=== PATIENT | male | born 1960 | race Caucasian/White ===

== ENCOUNTER 2016-12-20 17:34 | Emergency (ER) | payer OTHER ==
[2016-12-20] MEDS ORDERED: IOPAMIDOL 370 (76%) 100 ML VIAL IV ONE (17:35)
[2016-12-20] MEDS ORDERED: SODIUM CHLORIDE 0.9% 1,000 ML ONE (18:05)
[2016-12-20 18:21] LABS: ABSOLUTE NEUTROPHIL COUNT 4.7 K/mm3 (1.8-7.7); BASO # 0.1 K/mm3 (0.0-0.2); BASO % 1.5 % (0.2-1.0); EOS # 0.3 (0.0-0.5); EOS % 3.6 % (0.9-2.9); HEMATOCRIT 44.8 % (32.0-52.0); HEMOGLOBIN 15.4 gm/l (14.0-18.0); IMM NEUT% 0.5 % (0-1); LYMPH # 1.8 (1.0-4.8); LYMPH % 24.2 % (15-45); MEAN CELL VOLUME 87.3 fl (80.0-94.0); MEAN CORPUSCULAR HGB CONC 34.4 g/dl (33.0-37.0); MEAN PLATELET VOLUME 10.8 fl (7.4-10.4); MONO # 0.6 (0.0-0.8); MONO % 8.2 % (4-12); PLATELET COUNT 189 K/mm3 (130-400); RED CELL DISTRIBUTION WIDTH 11.9 % (11.5-14.5)
[2016-12-20 19:03] LABS: ALBUMIN 3.8 gm/dL (3.5-5.7); CALCIUM 9.5 mg/dL (8.6-10.3)
--- NOTE | 2016-12-20 19:03 | CT ---
EXAMINATION: Contrast enhanced CT scan of the abdomen and pelvis. CLINICAL INDICATION: Abdominal/pelvic pain. COMPARISON: None TECHNIQUE: Oral contrast: None Following uneventful administration of 100 mL of Isovue 370, intravenously axial images were acquired from just above the domes of the diaphragm to the iliac crest. A CT scan of the pelvis was also obtained from the iliac crest to the initial tuberosities. Stacked axial, sagittal, and coronal images were reviewed. Findings: Abdomen CT: (Contrast-enhanced): Lung bases exhibit mild basilar atelectasis. No mass or consolidation is identified. The liver is unremarkable. The gallbladder is within normal limits. There is no evidence of biliary obstruction. The spleen size and attenuation are within normal limits. The pancreas is normal in size and contours. No inflammatory stranding is identified. The pancreatic duct is unremarkable. The adrenals are unremarkable. The kidneys are without mass or hydronephrosis. No nephrolithiasis is identified. Atherosclerotic plaquing of the abdominal aorta is noted. There is no aneurysmal dilatation. The stomach is unremarkable. The visualized segments of small and large bowel are within normal limits. The osseous structures exhibit no displaced fracture. No lytic or blastic lesions are identified. Pelvic CT: (Contrast -enhanced): There is sigmoid diverticulitis. Mucosal thickening and adjacent mesenteric stranding is noted. Currently there is no evidence of discrete abscess formation or free intraperitoneal air. There is no evidence of bowel obstruction. The visualized segments of small bowel are unremarkable. The prostate is normal in size. No adenopathy is identified. Bilateral chronic plaquing of the iliac vessels are noted. There is no aneurysmal dilatation. There is no dependent free fluid. The appendix is unremarkable. No displaced fractures are identified. There are no gross osteolytic or blastic lesions. The overlying soft tissues are unremarkable. IMPRESSION: 1. Currently uncomplicated sigmoid diverticulitis. No free air or abscess is identified. 2. Atherosclerosis. 3. Normal appendix. The findings were uploaded to the electronic medical record for review at approximately 7:05 PM 12/20/2016
[2016-12-20] MEDS ORDERED: AMOX 875 MG/CLAV 125 MG 1 EACH TABLET ONE (19:20)
[2016-12-20 19:24] LABS: SPECIFIC GRAVITY 1.025 (1.001-1.030); URINE APPEARANCE HAZY; URINE BILIRUBIN NEGATIVE (NEGATIVE); URINE BLOOD NEGATIVE (NEGATIVE); URINE COLOR ORANGE; URINE GLUCOSE (UA) NEGATIVE (NEGATIVE); URINE LEUKOCYTE ESTERASE NEGATIVE (NEGATIVE); URINE NITRITE NEGATIVE (NEGATIVE); URINE PROTEIN NEGATIVE (NEGATIVE); URINE UROBILINOGEN 1 mg/dL (0-1 mg/dl)
== END 2016-12-20 19:37 | disposition home or self-care (01) ==
LOC: ED 17:34
DX: K57.92 Diverticulitis of intestine, part unspecified, without perforation or abscess without bleeding (principal); I10 Essential (primary) hypertension

== ENCOUNTER 2016-12-23 11:23 | Emergency (ER) | payer OTHER ==
[2016-12-23] MEDS ORDERED: IOPAMIDOL 300 (61%) 100 ML VIAL IV ONE (11:24)
[2016-12-23 12:31] LABS: ABSOLUTE NEUTROPHIL COUNT 4.2 K/mm3 (1.8-7.7); BASO # 0.1 K/mm3 (0.0-0.2); BASO % 1.2 % (0.2-1.0); EOS # 0.4 (0.0-0.5); EOS % 5.2 % (0.9-2.9); HEMATOCRIT 43.2 % (32.0-52.0); HEMOGLOBIN 14.9 gm/l (14.0-18.0); IMM NEUT # 0.1 K/mm3 (0-0.2); IMM NEUT% 0.8 % (0-1); LYMPH # 1.9 (1.0-4.8); LYMPH % 26.1 % (15-45); MEAN CELL VOLUME 88.7 fl (80.0-94.0); MEAN CORPUSCULAR HEMOGLOBIN 30.6 pg (27.0-31.0); MEAN CORPUSCULAR HGB CONC 34.5 g/dl (33.0-37.0); MEAN PLATELET VOLUME 11.1 fl (7.4-10.4); MONO # 0.7 (0.0-0.8); MONO % 9.1 % (4-12); NEUT % 57.6 % (43-75); PLATELET COUNT 202 K/mm3 (130-400)
[2016-12-23] MEDS ORDERED: MORPHINE SULFATE 4 MG/ML SYRINGE ONE (12:34)
[2016-12-23 12:55] LABS: ALBUMIN 3.7 gm/dL (3.5-5.7); CALCIUM 9.1 mg/dL (8.6-10.3)
--- NOTE | 2016-12-23 13:17 | CT ---
Exam: CT abdomen and pelvis with contrast COMPARISON: 12/20/2016 INDICATION: Worsening abdominal pain, history of diverticulitis. TECHNIQUE: CT examination of the abdomen and pelvis was obtained following the administration 100 mL Isovue-300 intravenous contrast. FINDINGS: Findings compatible with diverticulitis are again appreciated within the sigmoid colon. The inflamed diverticulum is annotated on coronal reformations 41 of 79 and now contains some gas. There are tiny foci of gas adjacent to this segment of sigmoid colon, the vast majority of which are within diverticula although a few tiny locules of extraluminal gas cannot be excluded. Inflammatory stranding in this region has progressed. There is no bowel obstruction, free fluid or evidence of abscess formation. The liver, spleen, pancreas, kidneys, adrenal glands and gallbladder are unremarkable. There is minor dependent atelectasis within the lung bases. No worrisome lytic or blastic osseous lesion is identified. IMPRESSION: There is been a slight interval progression in the inflammatory changes within the sigmoid colon, and the setting of recently diagnosed diverticulitis. There are several tiny locules of gas about the sigmoid colon; the vast majority of these are within diverticulum although small locules of extraluminal gas reflecting perforation of the bowel cannot be excluded. There is no large volume pneumoperitoneum, abscess or free fluid. Findings were discussed with Dr. Lorenzo 1313 hours 12/23/2016.
[2016-12-23] MEDS ORDERED: LACTATED RINGERS 1,000 ML ONE (13:22)
[2016-12-23] MEDS ORDERED: CEFTRIAXONE 1 GRAM DUPLEX 50 ML IV ONE (13:22)
[2016-12-23] MEDS ORDERED: METRONIDAZOLE 500 MG/NS 100 ML 100 ML IV ONE (13:48)
== END 2016-12-23 14:49 | disposition home or self-care (01) ==
LOC: ED 11:23
DX: K57.92 Diverticulitis of intestine, part unspecified, without perforation or abscess without bleeding (principal); R11.2 Nausea with vomiting, unspecified; I10 Essential (primary) hypertension